=== PATIENT | male | born 1995 | race Caucasian/White ===

== ENCOUNTER 2016-12-21 11:22 | Emergency (ER) | payer BC ==
[2016-12-21 11:45] VITALS: BP 122/73
--- NOTE | 2016-12-21 11:56 | EDM.PDOC ---
ED HPI Skin/Rash - General Chief Complaint: Skin Complaint Stated Complaint: RASH Time Seen by Provider: 12/21/16 11:32 - History of Present Illness INITIAL COMMENTS - FREE TEXT/NARRATIVE: HISTORY AND PHYSICAL: History of present illness: The patient is a healthy 21-year-old male who presents with complaints of a one- week history of rash to his dorsal forearms bilaterally is bumpy and intermittently itchy. 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 Patient states he did get sunburned on the areas to 2 exposure was last week and thought that maybe it was a heat rash. He also noted a small circular dry patch of skin on his proximal dorsal left forearm is not itchy and he thought it might be psoriasis. The patient is here for evaluation. He has no systemic complaints patient has not taken anything for the itching were applied any topical Review of systems: As per history of present illness and below otherwise all systems reviewed and negative. Past medical history: As per history of present illness and as reviewed below otherwise noncontributory. Surgical history: As per history of present illness and as reviewed below otherwise noncontributory. Social history: No reported history of drug or alcohol abuse. Family history: As per history of present illness and as reviewed below otherwise noncontributory. Physical exam: General: Well-developed well-nourished male nontoxic vital signs the note by me. HEENT: Atraumatic, normocephalic, negative for conjunctival pallor or scleral icterus, mucous membranes moist, throat clear, neck supple, nontender, trachea midline. Lungs: Clear to auscultation, breath sounds equal bilaterally, chest nontender. Heart: S1S2, regular, negative for clicks, rubs, or JVD. Abdomen: Soft, nondistended, nontender. NABS Skin: On the dorsal aspects of both forearms there is erythema consistent with sunburn and a fine maculopapular bumpy rash seen without sequela component or blisters. It is not tender to palpation. The compartments are soft. At the proximal dorsal left forearm there is a dime -sized area which is well demarcated of scaly dry skin which is whitish in color. There is no rash seen on the remainder of the head trunk or extremities. Genitourinary: Deferred. Rectal: Deferred. Extremities: Atraumatic, negative for cords or calf pain. Neurovascular unremarkable. Neuro: Awake, alert, oriented. Cranial nerves II through XII unremarkable. Cerebellum unremarkable. Motor and sensory unremarkable throughout. Exam nonfocal. Diagnostics: [] Therapeutics: [] Impression: Contact dermatitis with small patch of eczematous versus ringworm-like rash Definitive disposition and diagnosis as appropriate pending reevaluation and review of above. - Related Data Allergies Allergy/AdvReac Type Severity Reaction Status Date / Time amoxicillin Allergy Cannot Verified 12/21/16 11:43 Remember cefaclor [From Ceclor] Allergy Cannot Verified 12/21/16 11:43 Remember Home Meds: Ambulatory Orders Medication Instructions Recorded Confirmed . [No Known Home Meds] 12/21/16 12/21/16 Past Medical History - Past Health History Medical/Surgical History: Denies Medical/Surgical History Social & Family History - Family History Family Medical History: Noncontributory - Tobacco Use Smoking Status *Q: Former Smoker Used Tobacco, but Quit: Yes Month Tobacco Last Used: 10/31 - Recreational Drug Use Recreational Drug Use: No ED ROS GENERAL - Review of Systems Review Of Systems: ROS reveals no pertinent complaints other than HPI. ED EXAM, SKIN/RASH Exam: See Below (See dictation) Course - Vital Signs Last Recorded V/S: Last Vital Signs Temp 37.0 C 12/21/16 11:43 Pulse 61 12/21/16 11:43 Resp 18 12/21/16 11:43 BP 122/73 12/21/16 11:43 Pulse Ox 97 12/21/16 11:43 Departure - Departure Time of Disposition: 11:55 Disposition: Home, Self-Care 01 Condition: good Clinical Impression: Contact dermatitis Qualifiers: Contact dermatitis type: unspecified Contact dermatitis trigger: unspecified trigger Qualified Code(s): L25.9 - Unspecified contact dermatitis, unspecified cause Forms: ED Department Discharge Additional Instructions: The following information is given to patients seen in the emergency department who are being discharged to home. This information is to outline your options for follow-up care. We provide all patients seen in our emergency department with a follow-up referral. The need for follow-up, as well as the timing and circumstances, are variable depending upon the specifics of your emergency department visit. If you don't have a primary care physician on staff, we will provide you with a referral. We always advise you to contact your personal physician following an emergency department visit to inform them of the circumstance of the visit and for follow-up with them and/or the need for any referrals to a consulting specialist. The emergency department will also refer you to a specialist when appropriate. This referral assures that you have the opportunity for followup care with a specialist. All of these measure are taken in an effort to provide you with optimal care, which includes your followup. Under all circumstances we always encourage you to contact your private physician who remains a resource for coordinating your care. When calling for followup care, please make the office aware that this follow-up is from your recent emergency room visit. If for any reason you are refused follow-up, please contact the [facility] emergency department at and ask to speak to the emergency department charge nurse. [facility] Primary care- Internal Medicine and Family [address] [address] Please use [id number] Benadryl 50 mg every 6 hours for the next 24 hours and then use every 6 hours for itch or rash. This will help with the burning and itching. Please also use [id number] hydrocortisone to the areas with the bumps as well as a small circular rash-like area. Alternate hydrocortisone with described Monistat cream on the dry patch area. Please followup in the clinic is in resources given to today and return here as needed and as discussed. Please try to keep the areas covered for the next one week we'll you are outdoors
== END 2016-12-21 12:11 | disposition home or self-care (01) ==
LOC: MW.ED 11:22
DX: L25.9 Unspecified contact dermatitis, unspecified cause (principal); Z88.1 Allergy status to other antibiotic agents; Z88.8 Allergy status to other drugs, medicaments and biological substances; Z87.891 Personal history of nicotine dependence
CPT/HCPCS: 99282